=== PATIENT | male | born 1980 | race African-American/Black ===

== ENCOUNTER 2016-05-07 21:39 | Emergency (ER) | payer OTHER ==
[~2016-05-07] VITALS: Ht 180.3 cm; Wt 105.2 kg
[~2016-05-07 21:39] MED LIST: HYDR-906 PO; QUET400T PO; TRAZ300T15 PO
[2016-05-07 21:55] VITALS: Ht 180.3 cm; Wt 105.2 kg
[2016-05-08] MEDS ORDERED: DIPHENHYDRAMINE 50 MG INJ ONE (00:36)
[2016-05-08] MEDS ORDERED: LORAZEPAM 2 MG INJ ONE (00:36)
[2016-05-08] MEDS ORDERED: HALOPERIDOL 5 MG INJ ONE (00:36)
--- NOTE | 2016-05-08 00:38 | ERA ---
ER Documentation Chief Complaint Date/Time DATE: 05/08/16 TIME: 00:38 Chief Complaint Homicidal and suicidal ideation HPI The patient is a 36-year-old male, presenting to the ER because of homicidal and suicidal ideation. He is agitated and did not want to provide any history. Past medical/surgical history/social history: Unable to obtain due to due to his condition ROS All systems reviewed and are negative except as per history of present illness. Medications Home Meds Active Scripts Hydrocodone/Acetaminophen ([place] 5-325 Tablet) 1 Each Tablet, 1 TAB PO Q6H Y for PAIN, #20 TAB Prov:CLAU HAMPTON 01/29/16 Reported Medications Trazodone Hcl* (Trazodone Hcl*) 300 Mg Tablet, 300 MG PO QHS, #30 TAB 01/29/16 Quetiapine Fumarate* (Seroquel*) 400 Mg Tablet, 400 MG PO HS, TAB 01/29/16 Allergies Allergies: Coded Allergies: No Known Allergy (Unverified , 05/07/16) PMhx/Soc Hx Alcohol Use: Yes Hx Substance Use: No Hx Tobacco Use: Yes Physical Exam Vitals Vital Signs Date Time Temp Pulse Resp B/P Pulse Ox O2 Delivery O2 Flow Rate FiO2 05/08/16 00:45 98.0 78 23 128/67 100 Room Air 05/07/16 21:55 98.2 105 20 135/78 100 Physical Exam Const: No acute distress. Head: Atraumatic. Eyes: Normal Conjunctiva. ENT: Normal External Ears, Nose and Mouth. Neck: Full range of motion. No meningismus. Resp: Clear to auscultation bilaterally. Cardio: Regular rate and rhythm, no murmurs. Abd: Soft, non distended, normal bowel sounds, non tender. Skin: No petechiae or rashes. Back: No midline or flank tenderness. Ext: No cyanosis, or edema. Neur: Awake and alert. No focal deficit Psych: Agitated, homicidal, suicidal Result Diagram: 05/08/16 02005/08/16 020 Results 24 hrs Laboratory Tests Test 05/08/16 02:00 05/08/16 02:50 Acetaminophen Level < 10.0ug/ml Alanine Aminotransferase (ALT/SGPT) 153IU/L Albumin 4.7g/dl Albumin/Globulin Ratio 1.38 Alkaline Phosphatase 109IU/L Anion Gap 24 Aspartate Amino Transf (AST/SGOT) 84IU/L Basophils # 0.110^3/ul Basophils % 0.4% Blood Urea Nitrogen 9mg/dl Calcium Level 8.9mg/dl Carbon Dioxide Level 24mmol/L Chloride Level 110mmol/L Creatinine 0.86mg/dl Direct Bilirubin 0.00mg/dl Eosinophils # 0.110^3/ul Eosinophils % 0.7% Ethyl Alcohol Level 292.0mg/dl Globulin 3.40g/dl Glucose Level 83mg/dl Hematocrit 48.3% Hemoglobin 16.0g/dl Indirect Bilirubin 0.1mg/dl Lymphocytes # 3.610^3/ul Lymphocytes % 32.6% Mean Corpuscular Hemoglobin 30.1pg Mean Corpuscular Hemoglobin Concent 33.1g/dl Mean Corpuscular Volume 90.8fl Mean Platelet Volume 9.8fl Monocytes # 0.710^3/ul Monocytes % 6.5% Neutrophils # 6.610^3/ul Neutrophils % 59.3% Nucleated Red Blood Cells # 0.010^3/ul Nucleated Red Blood Cells % 0.0/100WBC Platelet Count 00754^3/UL Potassium Level 3.8mmol/L Red Blood Count 5.3210^6/ul Red Cell Distribution Width 12.9% Salicylates Level < 1.0mg/dl Sodium Level 154mmol/L Total Bilirubin 0.1mg/dl Total Protein 8.1g/dl White Blood Count 11.110^3/ul Urine Amphetamines Screen Negative Urine Barbiturates Negative Urine Benzodiazepines Screen Negative Urine Bilirubin NEGATIVE Urine Cannabinoids Negative Urine Clarity CLEAR Urine Cocaine Screen Negative Urine Color LT. YELLOW Urine Glucose NEGATIVE% Urine Hemoglobin 2+ Urine Ketones NEGATIVE Urine Leukocyte Esterase NEGATIVE Urine Microscopic RBC 2-5/HPF Urine Microscopic WBC NONE SEEN/HPF Urine Nitrite NEGATIVE Urine Opiates Screen Negative Urine Specific [place] 1.025 Urine Squamous Epithelial Cells RARE Urine Total Protein NEGATIVE Urine Transitional Epithelial Cells Urine Urobilinogen 0.2 E.U./dL Urine pH 5.5 Current Medications Medications (Trade) Dose Ordered Sig/Karen Route PRN Reason Start Time Stop Time Status Last Admin Dose Admin Diphenhydramine HCl (Benadryl) 50 mg STK-MED ONCE .ROUTE 05/08/16 00:36 05/08/16 00:37 DC Haloperidol (Haldol) 5 mg STK-MED ONCE .ROUTE 05/08/16 00:36 05/08/16 00:37 DC Lorazepam (Ativan) 2 mg STK-MED ONCE .ROUTE 05/08/16 00:36 05/08/16 00:37 DC Lorazepam (Ativan) 2 mg ONCE ONCE IM 05/08/16 01:00 05/08/16 01:01 DC 05/08/16 00:42 Haloperidol (Haldol) 5 mg ONCE ONCE IM 05/08/16 01:00 05/08/16 01:01 DC 05/08/16 00:43 Diphenhydramine HCl (Benadryl) 50 mg ONCE ONCE IM 05/08/16 01:00 05/08/16 01:01 DC 05/08/16 00:43 Procedures/MDM MEDICAL MAKING DECISION: The patient is a 36-year-old male, presenting to the ER because of acute suicidal and acute homicidal ideation, acute alcohol intoxication. He was very agitated and required sedation because he did not respond to counseling. He was treated Ativan 2 mg IM, haloperidol 5 mg IM, Benadryl 50 mg IM with good response. The differential diagnoses considered include but are not limited to psychosis, drug-induced psychosis, decompensated psychiatric illness, substance abuse Departure Diagnosis: Primary Impression: Suicidal ideation Additional Impressions: Homicidal ideation Alcohol intoxication Transaminitis Condition: Stable Comments He is awaiting for telepsychiatrist evaluation The patient's blood pressure was elevated (>120/80) but appears stable without evidence of hypertension emergency or urgency. The patient was counseled about the risks of hypertension and urged to pursue outpatient monitoring and therapy within a week after discharge with their primary care physician. NELSON REEVES MD May 08, 2016 00:38
[2016-05-08] MEDS ORDERED: LORAZEPAM 2 MG INJ IM ONE (01:00)
[2016-05-08] MEDS ORDERED: DIPHENHYDRAMINE 50 MG INJ IM ONE (01:00)
[2016-05-08] MEDS ORDERED: HALOPERIDOL 5 MG INJ IM ONE (01:00)
[2016-05-08 02:14] LABS: ADD SCAN DIFF NO
[2016-05-08 02:26] LABS: BASOPHIL # 0.1 10^3/ul (0.0-0.1); BASOPHILS % 0.4 % (0.0-2.0); EOSINOPHILS # 0.1 10^3/ul (0.0-0.5); EOSINOPHILS % 0.7 % (0.0-7.0); HEMATOCRIT 48.3 % (42.0-52.0); LYMPHOCYTES # 3.6 10^3/ul (0.8-2.9); LYMPHOCYTES % 32.6 % (15.0-51.0); MEAN CORPUSCULAR HEMOGLOBIN 30.1 pg (29.0-33.0); MEAN CORPUSCULAR HGB CONC 33.1 g/dl (32.0-37.0); MEAN CORPUSCULAR VOLUME 90.8 fl (82.0-101.0); MEAN PLATELET VOLUME 9.8 fl (7.4-10.4); MONOCYTE # 0.7 10^3/ul (0.3-0.9); MONOCYTES % 6.5 % (0.0-11.0); NEUTROPHIL # 6.6 10^3/ul (1.6-7.5); NEUTROPHILS % 59.3 % (39.0-77.0); PLATELET COUNT 339 10^3/UL (140-415); RED BLOOD COUNT 5.32 10^6/ul (4.70-6.10); RED CELL DISTRIBUTION WIDTH 12.9 % (11.5-14.5); WHITE BLOOD COUNT 11.1 10^3/ul (4.8-10.8)
[2016-05-08 02:42] LABS: ALBUMIN/GLOBULIN RATIO 1.38; ANION GAP 24 (8-16)
[2016-05-08 02:59] LABS: ACETAMINOPHEN < 10.0 ug/ml (10.0-30.0); ALANINE AMINOTRANSFERASE 153 IU/L (13-69); ALBUMIN 4.7 g/dl (3.3-4.9); ALKALINE PHOSPHATASE 109 IU/L (42-121); ASPARTATE AMINO TRANSFERASE 84 IU/L (15-46); BILIRUBIN,INDIRECT 0.1 mg/dl (0-1.1); BILIRUBIN,TOTAL 0.1 mg/dl (0.2-1.3); BLOOD UREA NITROGEN 9 mg/dl (7-20); CALCIUM 8.9 mg/dl (8.4-10.2); CARBON DIOXIDE 24 mmol/L (21-31); CHLORIDE 110 mmol/L (97-110); CREATININE 0.86 mg/dl (0.61-1.24); GLUCOSE 83 mg/dl (70-220); POTASSIUM 3.8 mmol/L (3.5-5.1); SALICYLATE < 1.0 mg/dl (5.0-30.0); SODIUM 154 mmol/L (135-144); TOTAL PROTEIN 8.1 g/dl (6.1-8.1)
[2016-05-08 03:26] LABS: ADD UMIC YES; URINE BILIRUBIN (Dip) NEGATIVE (NEGATIVE); URINE BLOOD (Dip) 2+ (NEGATIVE); URINE COLOR LT. YELLOW (YELLOW); URINE GLUCOSE (Dip) NEGATIVE (NEGATIVE); URINE KETONES (Dip) NEGATIVE (NEGATIVE); URINE LEUKOCYTE ESTERASE (Dip) NEGATIVE (NEGATIVE); URINE NITRITE (Dip) NEGATIVE (NEGATIVE); URINE TOTAL PROTEIN (Dip) NEGATIVE (NEGATIVE); URINE UROBILINOGEN (Dip) 0.2 E.U./dL (0.1-1.0)
[2016-05-08 03:39] LABS: BENZODIAZEPINES Negative (NEGATIVE)
[2016-05-08 03:48] LABS: SQUAMOUS EPITHELIAL CELL,UR RARE
[2016-05-08 04:17] LABS: BARBITURATES Negative (NEGATIVE); CANNABINOIDS Negative (NEGATIVE); COCAINE Negative (NEGATIVE); OPIATES Negative (NEGATIVE)
--- NOTE | 2016-05-08 06:07 | PSY ---
Date/Time of Note Date/Time of Note DATE: 05/08/16 TIME: 05:32 Psychiatric Subjective Eval Subjective Evaluation Patient location: emergency Chief Complaint: left arm pain x 1 week. denies injury Reason for consult: si History of present illness patient is a 36 yo male with PPH Of depression who came to the ER due to feeling suicidal for 3 days , he states that he hears voices telling him to hurt himself and he is feeling very paranoid, He is supposed to take trazodone, seroquel and lithium but has been off for 2 weeks, he is not able to sleep, he is very irritable , he wants to kill himself by overdosing on medication , he has attempted suicide before, denies any drug use , but has been drinking alcohol daily. Past psychiatric history past suicidal attempt yes Medical history Problems Medical Problems: (1) Alcohol intoxication Status: Acute (2) Fracture of distal end of left fibula Status: Acute (3) Fracture of proximal end of left fibula Status: Acute (4) Homicidal ideation Status: Acute (5) Pain of left leg Status: Acute (6) Suicidal ideation Status: Acute (7) Transaminitis Status: Acute Allergies: Coded Allergies: No Known Allergy (Unverified , 05/07/16) Substance Abuse Substance abuse history: Yes Prior substance abuse treatmen: Yes (alcohol ) Social History Marital status: single Level of education: hs DPA/Conservatorship: No Occupation/Group Home: unemployed Psychiatric Objective Eval Review of Systems: Review of Systems: Not Applicable Physical Examination: Physical Examination: Applicable Appetite: Decreased Energy: Decreased Interest: Decreased Mental Status Examination: Appearance: Groomed, Disheveled Eye Contact: Fair Psychomotor Activity: Normal Behavior: Cooperative Speech: Clear AFFECT: Depressed Mood: Depressed Though Process: Linear Thought Content: Hallucinations Suicidal: Yes Homicidal: No On 72 hour hold: No Orientation: x4 Cognition: Alert Insight: Impared Judgement: Impared Attention Span: Distractible Laboratory Results Laboratory Tests Test 05/08/16 02:00 05/08/16 02:50 Acetaminophen Level < 10.0ug/ml Alanine Aminotransferase (ALT/SGPT) 153IU/L Albumin 4.7g/dl Albumin/Globulin Ratio 1.38 Alkaline Phosphatase 109IU/L Anion Gap 24 Aspartate Amino Transf (AST/SGOT) 84IU/L Basophils # 0.110^3/ul Basophils % 0.4% Blood Urea Nitrogen 9mg/dl Calcium Level 8.9mg/dl Carbon Dioxide Level 24mmol/L Chloride Level 110mmol/L Creatinine 0.86mg/dl Direct Bilirubin 0.00mg/dl Eosinophils # 0.110^3/ul Eosinophils % 0.7% Ethyl Alcohol Level 292.0mg/dl Globulin 3.40g/dl Glucose Level 83mg/dl Hematocrit 48.3% Hemoglobin 16.0g/dl Indirect Bilirubin 0.1mg/dl Lymphocytes # 3.610^3/ul Lymphocytes % 32.6% Mean Corpuscular Hemoglobin 30.1pg Mean Corpuscular Hemoglobin Concent 33.1g/dl Mean Corpuscular Volume 90.8fl Mean Platelet Volume 9.8fl Monocytes # 0.710^3/ul Monocytes % 6.5% Neutrophils # 6.610^3/ul Neutrophils % 59.3% Nucleated Red Blood Cells # 0.010^3/ul Nucleated Red Blood Cells % 0.0/100WBC Platelet Count 82829^3/UL Potassium Level 3.8mmol/L Red Blood Count 5.3210^6/ul Red Cell Distribution Width 12.9% Salicylates Level < 1.0mg/dl Sodium Level 154mmol/L Total Bilirubin 0.1mg/dl Total Protein 8.1g/dl White Blood Count 11.110^3/ul Urine Amphetamines Screen Negative Urine Barbiturates Negative Urine Benzodiazepines Screen Negative Urine Bilirubin NEGATIVE Urine Cannabinoids Negative Urine Clarity CLEAR Urine Cocaine Screen Negative Urine Color LT. YELLOW Urine Glucose NEGATIVE% Urine Hemoglobin 2+ Urine Ketones NEGATIVE Urine Leukocyte Esterase NEGATIVE Urine Microscopic RBC 2-5/HPF Urine Microscopic WBC NONE SEEN/HPF Urine Nitrite NEGATIVE Urine Opiates Screen Negative Urine Specific [place] 1.025 Urine Squamous Epithelial Cells RARE Urine Total Protein NEGATIVE Urine Transitional Epithelial Cells Urine Urobilinogen 0.2 E.U./dL Urine pH 5.5 Assessment and Plan Assessment/Diagnosis [place] I: mood do nos psychosis nos [place] II: deferred [place] III: as per record [place] IV: poor social support [place] V: gaf 25 Recommendation/Plan Medication Management haldol 5 mg im with ativan 2 mg im for agitation q6h Follow-up/Disposition Please admit patient on unvoluntary status due to Danger to self, In my opinion, patient currently MEETS criterion for inpatient care and CANNOT be safely treated at a lower level of care today as evidenced by the following risk factors: Current and Recent Suicidal Ideation Previous suicide attempt and severe self-destructive behavior Intense feelings of hopelessness and lack of future orientation. Significant recent DETERIORATION in function, behavior and thought processes Command hallucinations with violent content Substance ABUSE in conjunction with another psychiatric disorder Non-Compliance with Outpatient Treatment Patient has failed outpatient and requires further inpatient assessment Medication changes require observation unavailable at a lower level of care. [id number] Recommendation: Place [facility] JASON BAHENA MD May 08, 2016 05:52
[2016-05-08 19:30] VITALS: BP 127/80; PULSE 68; RESP 16; TEMP 98.7
== END 2016-05-08 19:58 ==
LOC: E/R 21:39
DX: F10.129 Alcohol abuse with intoxication, unspecified (principal); R45.851 Suicidal ideations; R45.850 Homicidal ideations; R74.0 Nonspecific elevation of levels of transaminase and lactic acid dehydrogenase [LDH]
CPT/HCPCS: 36415; 80053; 80306; 80307; 81001; 85025; 96372; J1200; J1630; J2060; Z7502; 81003

== ENCOUNTER 2016-08-01 18:19 | Emergency (ER) | payer OTHER ==
[~2016-08-01] VITALS: Ht 175.3 cm; Wt 110.0 kg
[2016-08-01 18:21] VITALS: Ht 175.3 cm; Wt 110.0 kg
[2016-08-01 20:50] LABS: ADD SCAN DIFF NO
[2016-08-01 20:55] LABS: ABNORMAL IP MESSAGE 1; HEMATOCRIT 46.7 % (42.0-52.0); MEAN CORPUSCULAR HEMOGLOBIN 30.2 pg (29.0-33.0); MEAN CORPUSCULAR HGB CONC 34.3 g/dl (32.0-37.0); MEAN CORPUSCULAR VOLUME 88.1 fl (82.0-101.0); MEAN PLATELET VOLUME 9.7 fl (7.4-10.4); PLATELET COUNT 463 10^3/UL (140-415); RED CELL DISTRIBUTION WIDTH 13.5 % (11.5-14.5)
[2016-08-01 21:06] LABS: ALBUMIN 4.8 g/dl (3.3-4.9); ALBUMIN/GLOBULIN RATIO 1.23; BILIRUBIN,INDIRECT 0.2 mg/dl (0-1.1); BILIRUBIN,TOTAL 0.2 mg/dl (0.2-1.3); CALCIUM 8.6 mg/dl (8.4-10.2); CREATININE 0.85 mg/dl (0.61-1.24); POTASSIUM 3.5 mmol/L (3.5-5.1); TOTAL PROTEIN 8.7 g/dl (6.1-8.1)
[2016-08-01 21:23] LABS: EOSINOPHILS # 0.1 10^3/ul (0.0-0.5); LYMPHOCYTES # 6.2 10^3/ul (0.8-2.9); MONOCYTE # 0.8 10^3/ul (0.3-0.9); NEUTROPHIL # 4.8 10^3/ul (1.6-7.5)
[2016-08-01 21:29] LABS: BARBITURATES NEGATIVE (NEGATIVE); BENZODIAZEPINES NEGATIVE (NEGATIVE); CANNABINOIDS NEGATIVE (NEGATIVE); COCAINE NEGATIVE (NEGATIVE); OPIATES NEGATIVE (NEGATIVE)
--- NOTE | 2016-08-01 21:56 | ERA ---
ER Documentation Chief Complaint Date/Time DATE: 08/01/16 TIME: 21:53 Chief Complaint refill of psych meds, etoh smell on breath HPI 36-year-old male who presents initially because he wants a refill of his psychiatric medications but that he is stating that he is suicidal and homicidal. The patient smells strongly of alcohol and admits to drinking. The patient cannot give a plan for suicidal homicidal thoughts. The patient is uncooperative. He states a history of schizophrenia and has not been taking his medications. ROS All systems reviewed and are negative except as per history of present illness. Medications Home Meds Active Scripts Hydrocodone/Acetaminophen ([place] 5-325 Tablet) 1 Each Tablet, 1 TAB PO Q6H Y for PAIN, #20 TAB Prov:CLAU HAMPTON 01/29/16 Reported Medications Trazodone Hcl* (Trazodone Hcl*) 300 Mg Tablet, 300 MG PO QHS, #30 TAB 01/29/16 Quetiapine Fumarate* (Seroquel*) 400 Mg Tablet, 400 MG PO HS, TAB 01/29/16 Allergies Allergies: Coded Allergies: No Known Allergy (Unverified , 05/07/16) PMhx/Soc Medical and Surgical Hx: pt denies Medical Hx, pt denies Surgical Hx Hx Psychiatric Problems: Yes (depression) Hx Alcohol Use: Yes Hx Substance Use: No Hx Tobacco Use: Yes Smoking Status: Current every day smoker Physical Exam Vitals Vital Signs Date Time Temp Pulse Resp B/P Pulse Ox O2 Delivery O2 Flow Rate FiO2 08/01/16 18:21 98.1 110 18 143/91 99 Physical Exam General: Disheveled and smells strongly of alcohol, protecting his airway Head: Normocephalic, atraumatic. Eyes: Pupils equally reactive, EOM intact ENT: Moist mucous membranes Neck: Supple, no lymphadenopathy Respiratory: Lungs clear bilaterally, no distress Cardiovascular: RRR, no murmurs, rubs, or gallops Abdominal: Soft, non-tender, non-distended, no peritoneal signs : Deferred MSK: No edema, no unilateral swelling, 5/5 strength Neurologic: Alert and oriented, moving all extremities, normal speech, no focal weakness, no cerebellar signs Skin: No rash Psych: Reports suicidal and homicidal thoughts but no active plan. Result Diagram: 08/01/16204108/01/162041 Results 24 hrs Laboratory Tests Test 08/01/16 20:42 White Blood Count 12.010^3/ul Red Blood Count 5.3010^6/ul Hemoglobin 16.0g/dl Hematocrit 46.7% Mean Corpuscular Volume 88.1fl Mean Corpuscular Hemoglobin 30.2pg Mean Corpuscular Hemoglobin Concent 34.3g/dl Red Cell Distribution Width 13.5% Platelet Count 24025^3/UL Mean Platelet Volume 9.7fl Neutrophils % 40.0% Lymphocytes % 52.0% Monocytes % 7.0% Eosinophils % 1.0% Neutrophils # 4.810^3/ul Lymphocytes # 6.210^3/ul Monocytes # 0.810^3/ul Eosinophils # 0.110^3/ul Sodium Level 148mmol/L Potassium Level 3.5mmol/L Chloride Level 108mmol/L Carbon Dioxide Level 25mmol/L Anion Gap 19 Blood Urea Nitrogen 11mg/dl Creatinine 0.85mg/dl Glucose Level 118mg/dl Calcium Level 8.6mg/dl Total Bilirubin 0.2mg/dl Direct Bilirubin 0.00mg/dl Indirect Bilirubin 0.2mg/dl Aspartate Amino Transf (AST/SGOT) 43IU/L Alanine Aminotransferase (ALT/SGPT) 74IU/L Alkaline Phosphatase 115IU/L Total Protein 8.7g/dl Albumin 4.8g/dl Globulin 3.90g/dl Albumin/Globulin Ratio 1.23 Urine Opiates Screen NEGATIVE Urine Barbiturates NEGATIVE Urine Amphetamines Screen NEGATIVE Urine Benzodiazepines Screen NEGATIVE Urine Cocaine Screen NEGATIVE Urine Cannabinoids NEGATIVE Ethyl Alcohol Level > 300.0mg/dl Procedures/MDM LAB INTERPRETATION: Elevated alcohol level MEDICAL DECISION MAKING: The patient's presentation is consistent with underlying psychiatric illness and likely exacerbation of this illness and/or psychosis versus acute alcohol intoxication and malingering The patient is protecting his airway, no indication for intubation. I have a much lower clinical concern for delirium or acute organic pathology such as toxicologic, metabolic, ischemic, intracranial hemorrhage, infectious process. However, we must rule this out prior to relying a diagnosis of underlying psychiatric illness. The patient's workup will include medical screening examination, laboratory analysis, and diagnostic imaging such as EKG, chest x-ray or CT brain as indicated. If the patient's medical examination and laboratory analysis do not reveal acute organic pathology the patient will be medically cleared for psychiatric evaluation. ER COURSE: The patient has elevated alcohol level. This is likely consistent with alcohol intoxication. The patient will benefit from reevaluation after sober to see if he is truly suicidal or homicidal. He was placed with a sitter. He will be signed out to Dr. Booth to follow-up and disposition plan. I kept the patient and/or family informed of laboratory and diagnostic imaging results throughout the emergency room course. CONSULTATION: Psychiatric consultation: [facility] medicine psychiatry has been consulted on this case to evaluate the patient for possible acute psychiatric illness that would require inpatient hospitalization. DISPOSITION PLAN: Pending sobriety and reevaluation Departure Diagnosis: Primary Impression: Suicidal ideation Additional Impression: Acute alcohol intoxication Qualified Code: F10.120 - Acute alcohol intoxication, uncomplicated Condition: Stable KRIS TRACY MD August 01, 2016 21:56
--- NOTE | 2016-08-02 00:20 | PSY ---
Date/Time of Note Date/Time of Note DATE: 08/01/16 TIME: 22:56 Psychiatric Subjective Eval Consent Pt consented to telemedicine: Yes Subjective Evaluation Patient location: emergency Chief Complaint: refill of psych meds, etoh smell on breath Reason for consult: suicidal ideation History of present illness Pppatient is a 36 yo male Patient is a 36 yo male living in a sober living with PPH Of depression, anxiety and alcohol abuse who came to the ER due to feeling suicidal, he states that he has been hearing voices telling him to kill himself, and he has been feeling suicidal and wants to run into traffic, he feels paranoid, he cannot tell me why he is feeling depressed, he has been having problem sleeping for days , decrease appetite, irritable and poor energy , denies any HI, denies any drug use Past psychiatric history past suicidal attempt yes Hospitalization: yes Family History denies Medical history Problems Medical Problems: (1) Acute alcohol intoxication Status: Acute (2) Alcohol intoxication Status: Acute (3) Fracture of distal end of left fibula Status: Acute (4) Fracture of proximal end of left fibula Status: Acute (5) Homicidal ideation Status: Acute (6) Pain of left leg Status: Acute (7) Suicidal ideation Status: Acute (8) Suicidal ideation Status: Acute (9) Transaminitis Status: Acute Allergies: Coded Allergies: No Known Allergy (Unverified , 05/07/16) Substance Abuse Substance abuse history: Yes (alcohol ) Prior substance abuse treatmen: Yes (alcohol ) Social History Marital status: single Level of education: hs DPA/Conservatorship: No Occupation/Senior Care: unemployed Psychiatric Objective Eval Review of Systems: Review of Systems: Not Applicable Physical Examination: Physical Examination: Applicable Sleep: Insomnia Appetite: Decreased Energy: Decreased Interest: Decreased Mental Status Examination: Appearance: Disheveled Eye Contact: Good Psychomotor Activity: Normal Behavior: Cooperative Speech: Clear AFFECT: Depressed Mood: Depressed Though Process: Linear Thought Content: Hallucinations Suicidal: Yes Homicidal: No On 72 hour hold: No Orientation: x3 Cognition: Alert Insight: Impared Judgement: Impared Attention Span: Intact Laboratory Results Laboratory Tests Test 08/01/16 20:42 White Blood Count 12.010^3/ul Red Blood Count 5.3010^6/ul Hemoglobin 16.0g/dl Hematocrit 46.7% Mean Corpuscular Volume 88.1fl Mean Corpuscular Hemoglobin 30.2pg Mean Corpuscular Hemoglobin Concent 34.3g/dl Red Cell Distribution Width 13.5% Platelet Count 90993^3/UL Mean Platelet Volume 9.7fl Neutrophils % 40.0% Lymphocytes % 52.0% Monocytes % 7.0% Eosinophils % 1.0% Neutrophils # 4.810^3/ul Lymphocytes # 6.210^3/ul Monocytes # 0.810^3/ul Eosinophils # 0.110^3/ul Sodium Level 148mmol/L Potassium Level 3.5mmol/L Chloride Level 108mmol/L Carbon Dioxide Level 25mmol/L Anion Gap 19 Blood Urea Nitrogen 11mg/dl Creatinine 0.85mg/dl Glucose Level 118mg/dl Calcium Level 8.6mg/dl Total Bilirubin 0.2mg/dl Direct Bilirubin 0.00mg/dl Indirect Bilirubin 0.2mg/dl Aspartate Amino Transf (AST/SGOT) 43IU/L Alanine Aminotransferase (ALT/SGPT) 74IU/L Alkaline Phosphatase 115IU/L Total Protein 8.7g/dl Albumin 4.8g/dl Globulin 3.90g/dl Albumin/Globulin Ratio 1.23 Urine Opiates Screen NEGATIVE Urine Barbiturates NEGATIVE Urine Amphetamines Screen NEGATIVE Urine Benzodiazepines Screen NEGATIVE Urine Cocaine Screen NEGATIVE Urine Cannabinoids NEGATIVE Ethyl Alcohol Level 351.0mg/dl Assessment and Plan Assessment/Diagnosis [place] I: 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 anxiety do nos alcohol abuse [place] II: deferred [place] III: as per record [place] IV: poor social support [place] V: gaf 25 Recommendation/Plan Medication Management restart lithium 300 mg po bid seroquel 200 mg po qhs trazodone 150 mg po qhs Follow-up/Disposition Please admit patient on unvoluntary status due to Danger to self, In my opinion, patient currently MEETS criterion for inpatient care and CANNOT be safely treated at a lower level of care today as evidenced by the following risk factors: Current and Recent Suicidal Ideation Previous suicide attempt and severe self-destructive behavior Intense feelings of hopelessness and lack of future orientation. Significant recent DETERIORATION in function, behavior and thought processes Command hallucinations with violent content Substance ABUSE in conjunction with another psychiatric disorder Non-Compliance with Outpatient Treatment Patient has failed outpatient and requires further inpatient assessment Medication changes require observation unavailable at a lower level of care. 515 Recommendation: Place Hold MATIP,JASON N. MD August 01, 2016 23:20
[2016-08-02] MEDS ORDERED: LITH300T5 PO (14:14)
[2016-08-02] MEDS ORDERED: SERT100T PO (14:14)
[2016-08-02 18:40] VITALS: BP 138/87; PULSE 57; RESP 17; TEMP 99.1
== END 2016-08-02 21:50 ==
LOC: E/R 18:19
DX: R45.851 Suicidal ideations (principal); F10.120 Alcohol abuse with intoxication, uncomplicated; F17.210 Nicotine dependence, cigarettes, uncomplicated; R40.2142 Coma scale, eyes open, spontaneous, at arrival to emergency department; R40.2252 Coma scale, best verbal response, oriented, at arrival to emergency department; R40.2362 Coma scale, best motor response, obeys commands, at arrival to emergency department
CPT/HCPCS: 36415; 80053; 80306; 80307; 85025; 99285

== ENCOUNTER 2018-12-08 09:26 | Emergency (ER) | payer OTHER ==
[~2018-12-08] VITALS: Ht 180.3 cm; Wt 110.0 kg
[~2018-12-08 09:26] MED LIST changes: +HYDR-4011 PO; -HYDR-906 PO; +LITH300T5 PO; +SERT100T PO
[2018-12-08 09:29] VITALS: Ht 180.3 cm; Wt 110.0 kg
[2018-12-09 03:47] VITALS: BP 114/77; PULSE 84; RESP 16
== END 2018-12-09 03:55 ==
LOC: E/R 09:26
DX: R45.851 Suicidal ideations (principal); Z87.891 Personal history of nicotine dependence
CPT/HCPCS: 80053; 80307; 81003; 85025; Z7502